=== PATIENT | female | born 1955 | race Caucasian/White ===

== ENCOUNTER → 2020-06-30 | Day surgery (SDC) | payer MEDICARE, OTHER ==
[~2020-06-30] MED LIST: ACETAMINOPHEN500 M1 PO; CELEXA20 MG PO; CLARITIN10 MG PO; COZAAR50 MG PO; DICLOFENAC SODI75 MG PO; HAIR, SKIN & N1 EACH PO; MAGNESIUM500 MG PO; PERCOCET 5-3251 EACH PO; SUDOGEST SINUS1 EACH PO; SYNTHROID125 MCG PO; TRIAMTERENE-HC1 EACH PO; VITAMIN D350 MC4 PO; VITAMIN E100 UNI1 PO; VOLTAREN **OUT75 MG PO; XARELTO10 MG PO; ZANTAC300 MG PO
[2020-06-30 08:06] LABS: HCT 38.3 % (37.0-47.0); HGB 12.2 g/dl (12.5-16.0); MCH 27.2 pg (25.0-31.0); MCHC 31.9 g/dL (32.0-36.0); MCV 85.5 fL (78.0-100.0); MPV 12.4 fL (6.0-9.5); RBC 4.48 M/uL (4.20-5.40); RDW 15.4 % (11.5-14.0); WBC 8.6 K/uL (4.0-10.5)
[2020-06-30 08:17] LABS: ALBUMIN 3.6 g/dL (3.4-5.0); BILIRUBIN - TOTAL 0.5 mg/dL (0.2-1.0); BUN/CREAT RATIO (CALC) 21.7 RATIO; CREATININE 0.83 mg/dL (0.51-0.95); GLOBULIN (CALCULATION) 4.2 g/dL; POTASSIUM 3.5 mmol/L (3.5-5.1); TOTAL PROTEIN 7.8 g/dL (6.4-8.2)
== END | disposition home or self-care (01) ==
LOC: FAS 06:54
PROVIDERS: Surgery
DX: Z12.11 Encounter for screening for malignant neoplasm of colon (principal); Z86.010 Personal history of colon polyps; K57.30 Diverticulosis of large intestine without perforation or abscess without bleeding; D17.30 Benign lipomatous neoplasm of skin and subcutaneous tissue of unspecified sites; K21.9 Gastro-esophageal reflux disease without esophagitis; M19.90 Unspecified osteoarthritis, unspecified site; I10 Essential (primary) hypertension; I35.1 Nonrheumatic aortic (valve) insufficiency; M10.9 Gout, unspecified; E03.9 Hypothyroidism, unspecified; Z88.5 Allergy status to narcotic agent; Z91.09 Other allergy status, other than to drugs and biological substances; Z88.8 Allergy status to other drugs, medicaments and biological substances; Z90.49 Acquired absence of other specified parts of digestive tract; Z90.710 Acquired absence of both cervix and uterus; Z96.669 Presence of unspecified artificial ankle joint; R42 Dizziness and giddiness; Z80.0 Family history of malignant neoplasm of digestive organs; Z82.49 Family history of ischemic heart disease and other diseases of the circulatory system
CPT/HCPCS: 36415; 80053; J2704; J7120

== ENCOUNTER 2020-08-01 09:24 | Emergency (ER) | payer MEDICARE, OTHER ==
[2020-08-01 09:46] LABS: BASOPHIL 1.1 % (0-2); EOSINOPHIL 3.1 % (0-7); HCT 37.3 % (37.0-47.0); HGB 11.9 g/dl (12.5-16.0); LYMPHOCYTE 35.2 % (15-48); MCH 27.4 pg (25.0-31.0); MCHC 31.9 g/dL (32.0-36.0); MCV 85.7 fL (78.0-100.0); MONOCYTE 13.6 % (0-12); MPV 12.8 fL (6.0-9.5); NEUTROPHIL 46.7 % (41-80); NRBC 0; PLT 257 K/uL (150-400); RBC 4.35 M/uL (4.20-5.40); RDW 15.3 % (11.5-14.0); WBC 7.5 K/uL (4.0-10.5)
[2020-08-01 10:00] LABS: ALBUMIN 3.4 g/dL (3.4-5.0); BILIRUBIN - TOTAL 0.2 mg/dL (0.2-1.0); BUN/CREAT RATIO (CALC) 20.2 RATIO; CREATININE 0.89 mg/dL (0.51-0.95); GLOBULIN (CALCULATION) 3.9 g/dL; POTASSIUM 3.6 mmol/L (3.5-5.1); TOTAL PROTEIN 7.3 g/dL (6.4-8.2)
[2020-08-01 10:28] LABS: INR 1.03 (0.9-1.2); PROTHROMBIN TIME 12.8 SECONDS (11.4-13.6)
[2020-08-01 10:30] LABS: D-DIMER 0.82 ug/mLFEU (0.00-0.41)
== END 2020-08-01 15:01 | disposition home or self-care (01) ==
LOC: FER 09:24
PROVIDERS: Emergency Medicine
DX: R07.9 Chest pain, unspecified (principal); R55 Syncope and collapse; I10 Essential (primary) hypertension; Z88.5 Allergy status to narcotic agent; Z88.8 Allergy status to other drugs, medicaments and biological substances; Z91.018 Allergy to other foods
CPT/HCPCS: 36415; 71045; 71275; 80053; 84484; 85025; 85379; 85610; 93005; Q9967